=== PATIENT | male | born 1970 | race Caucasian/White ===

== ENCOUNTER → 2016-08-14 | Outpatient (CLI) | payer BC ==
[~2016-08-14] MED LIST: DIPH25CA37 PO; EPP3/2 IM; PRED20TA2 PO
[2016-08-14 14:17] LABS: ALT/SGPT 24 U/L (12-78); AST/SGOT 19 U/L (15-37); BLOOD UREA NITROGEN 13 mg/dl (7-18); BUN/CREATININE RATIO 13.1 (10-20); CALCIUM 8.9 mg/dl (8.5-10.1); CARBON DIOXIDE 28 mmol/L (21-32); CHLORIDE 106 mmol/L (98-107); GLUCOSE 90 mg/dl (70-99); POTASSIUM 4.3 mmol/L (3.5-5.1); SODIUM 141 mmol/L (136-145)
[2016-08-14 14:19] LABS: ALB/GLOB RATIO 1.3 (0.9-2); ALKALINE PHOSPHATASE 105 U/L (45-117); CHOLESTEROL 136 mg/dl (0-200); CHOLESTEROL/HDL RATIO 3.3; HDL CHOLESTEROL 41 mg/dl; LDL CHOLESTEROL CALCULATED 86 mg/dl; TRIGLYCERIDES 46 mg/dl (0-150); VERY LOW DENSITY LIPOPROT CALC 9 mg/dl
[2016-08-14 15:41] LABS: LYME DISEASE AB IGG NEG (NEG); LYME DISEASE AB IGM NEG (NEG)
== END | disposition home or self-care (01) ==
LOC: C.LABBC 10:35
PROVIDERS: ATTEND Internal Medicine
DX: R03.0 Elevated blood-pressure reading, without diagnosis of hypertension (principal); S30.860A Insect bite (nonvenomous) of lower back and pelvis, initial encounter; W57.XXXA Bitten or stung by nonvenomous insect and other nonvenomous arthropods, initial encounter

== ENCOUNTER → 2017-02-19 | Outpatient (CLI) | payer BC ==
[~2017-02-19] MED LIST changes: -PRED20TA2 PO
--- NOTE | 2017-02-19 13:03 | DIAGNOSTIC IMAGING REPORT ---
[facility]UB CLINICAL HISTORY: NEPHROLITHIASIS COMPARISON STUDY: CT scan dated 03/25/2016 FINDINGS: The bowel gas pattern is unremarkable. No renal or ureteral calculi are visualized. Pelvic basin calcifications are likely prostatic. There is a right iliac bone island. IMPRESSION: 1. Unremarkable bowel gas pattern 2. No urinary tract calculi are visualized on conventional radiographic imaging Electronically signed by: Kip Whitlock M.D. 02/19/2017 1:02 PM Dictated Date/Time: 02/19/2017 1:01 PM
== END | disposition home or self-care (01) ==
LOC: C.RAD 12:45
PROVIDERS: ATTEND Urology
DX: N20.0 Calculus of kidney (principal)

== ENCOUNTER 2024-04-28 14:03 | Inpatient (IN) ==
--- NOTE | 2024-04-28 14:19 | Emergency Department Note ---
Impression & Plan Ac ischemic VBA cerebellar stroke, Pulmonary embolism ED Provider Note NAME: CARLA GARCIA AGE: 53 SEX: M : 1970 ARRIVES VIA: Ambulance INFORMANT: Patient, ED PROVIDER(S): Vikram Mondragon DO CHIEF COMPLAINT: Vomiting HPI: The patient is a 53-year-old male who presented to the emergency department for an evaluation of nausea and vomiting. The patient states he was going to work today. He woke this morning went to work in usual fashion. He went to get something to eat and got back to his office at approximately 1 PM. He states that approximately 1:10 he had an acute onset of nausea and vomiting. He became very diaphoretic. He states anytime he opens his eyes he becomes very dizzy and feels of the room is spinning. He does have a slight headache. He denies having any unilateral weakness or difficulty speaking. The patient denies having any history of stroke or hypertension. The patient called 911 because of the severity of symptoms. ROS: See above HPI for pertinent positives & negatives. A total of 10 systems reviewed and were otherwise negative. PAST MEDICAL HISTORY: See Below PAST SURGICAL HISTORY: See Below FAMILY HISTORY: See Below SOCIAL HISTORY: See Below HOME MEDICATIONS: See Below ALLERGIES: See Below VITALS: See Below PHYSICAL EXAMINATION: GENERAL: The patient is awake and alert. The patient is anxious. EYES: The conjunctivae are clear. The pupils are round and reactive. There was no nystagmus with looking to the right. There was vertical nystagmus as well as nystagmus looking to the left. EARS, NOSE, MOUTH AND THROAT: The nose is without any evidence of any deformity. Mucous membranes are moist. Tongue is midline. Tympanic membranes were clear. NECK: The neck is nontender and supple. RESPIRATORY: Normal respiratory effort is noted there is no evidence of wheezing rhonchi or rales CARDIOVASCULAR: Regular rate and rhythm noted there no murmurs rubs or gallops normal S1 normal S2. GASTROINTESTINAL: The abdomen is soft. Abdomen is nontender. MUSCULOSKELETAL/EXTREMITIES: There is no evidence of gross deformity full range of motion is noted in the hips and shoulders. SKIN: There is no obvious evidence of any rash. There are no petechiae, pallor or cyanosis noted. NEUROLOGIC: Patient is awake alert and oriented x3 strength is symmetric patellar reflexes are 2+ bilaterally. [id number] was symmetric. The patient is unable to ambulate and has very severe ataxia with any ambulation. MEDICAL DECISION MAKING: The patient is a 53-year-old male who presented to the emergency department for nausea vomiting. The patient was not made a stroke alert by prehospital personnel. The patient was evaluated by nursing and after I evaluated the patient he was made a stroke alert. The patient presented with acute nausea and vomiting associated with vertigo. On my exam the patient did not have any abnormalities with [id number] but he did have vertical nystagmus as well as nystagmus looking to the left. He also appeared to have severe ataxia. The patient was evaluated by the [facility] neurology group. I discussed the patient's laboratory and radiographic studies with him and his . I also discussed the possibility of stroke and the need for thrombolytics if given within the first 4-1/2 hours for the best possible outcome. I discussed the risks of the medication as well and after discussion the patient agreed that he would want to have TNK. The TNK was ordered by myself. The patient was also found to have signs of a pulmonary embolism on CT angiography of the neck. At this time CT of the chest will be delayed until the patient is stable. The patient himself denied having any chest pain or difficulty breathing. The patient did have some calf tenderness but he did not relay this to me until after we had already found out about the pulmonary embolism. Apparently him and his significant other had a recent trip to the [facility] where they were in the car for an extended period of time. The patient's symptoms did slowly improve while in the emergency department. I discussed his condition with the on-call [facility] hospitalist. They have agreed to evaluate the patient in the emergency department. There were some delays in the administration of TN K. The patient's blood pressure was acceptable. The patient's significant other did ask for more information prior to agreeing to TNK but further information was given to her by the [facility] neurologist as well as myself. Triage Nursing notes reviewed. Prior medical records reviewed Vital Signs: reviewed and remarkable for elevated blood pressure. Differential diagnosis: Benign positional vertigo, dehydration, hypovolemia, anemia, tumor, infection, hypoglycemia, electrolyte abnormalities, cardiac sources, intracerebral event, toxicologic, neurologic, as well as other pathologies. ER treatment provided: See below Diagnostics interpreted by me: ECG: EKG was obtained in the emergency department. My interpretation is sinus rhythm at 78 bpm. There is no ectopy. There is no acute ST segment abnormalities noted. Cardiac Monitoring: An order was placed for continuous cardiac monitoring. The monitor shows a rate of 77 bpm with sinus rhythm. Laboratory studies: As stated above and show below. Imaging studies: See below. Radiographic imaging was reviewed by myself Consultation(s): I discussed this case with Dr. [facility] I discussed this case with the [facility] hospitalist group. They will evaluate the patient in the emergency department. ED COURSE: Procedures: none Critical Care: I have personally spent greater than 45 minutes of critical care time in the direct management of this patient. This includes bedside care, interpretation of diagnostic studies, and testing, discussion with consultants, patient, and family members, and other required patient management activities. This 45 minutes is in excess of all separately billable procedures. Past Med/Surg History Problem List Pulmonary embolism (Acute) Ac ischemic VBA cerebellar stroke (Acute) Obesity (BMI 30-39.9) Obstructive sleep apnea (adult) (pediatric) (Chronic) Medical History Acquired deviated nasal septum History of kidney stones Sleep apnea cpap Varicocele Surgical History H/O colonoscopy 06/2019 Repeat 5 yrs Hx of right knee surgery bone spur removal History of wisdom tooth extraction History of tonsillectomy Hx of LASIK Family History Mother Anxiety Hypertension Father Diabetes Heart disease Cardiac disorder Hypertension Myocardial infarction Stroke Brother Alcohol abuse Myocardial infarction Sister Ovarian cancer Alcohol abuse Uncle Myocardial infarction Other No family history of adverse response to anesthesia Denies family history of Prostate cancer Breast cancer Lung cancer Colorectal cancer Social History Smoking Status: Never smoker Second Hand Exposure: No; Do You Dip or Chew Tobacco: No; Hx Alcohol Use: Yes Alcohol type: wine Alcohol Intake Frequency: 2-4 x/Month Hx Substance Use: No Preferred Language: Spanish Communication Ability: Effective Visual Impairment: Limited Hearing Ability: Normal Bending Machine Set Up Operator Required: No Beliefs That Will Affect Care: None marital status: Current Living Situation: Spouse Current Living Situation Comment: - [place] current occupational status: employed current occupation: construction eng How many Children do You have: 0 Feels Safe at Home: Yes Childhood Exposure to Second-Hand Smoke: No Diet: regular caffeine: Yes during the past year weight has: remained stable Dental Care, Regularly: Yes Physical Activity Frequency: 3-4 Times per Week Seatbelt Use: always Sunscreen Use: Yes Assistive Devices: CPAP and Glasses Allergies Allergies Allergy/AdvReac Type Severity Reaction Status Date / Time bee pollen Allergy Severe Swelling Verified 04/28/24 15:58 of Lip/Tongue/Throat wool Allergy Mild itchy Verified 04/28/24 15:58 Dust AdvReac Intermediate sneezing Uncoded 04/28/24 15:58 Home Meds Home Medications Medication Instructions Recorded Confirmed melatonin 5 mg capsule 5 mg PO HS PRN Sleep 11/16/20 04/28/24 Results & Data (ED) Vital Signs Vital Signs - 24 hr 04/28/24 14:11 04/28/24 14:38 04/28/24 14:39 Temperature 36.5 C Temperature Source Oral Pulse Rate 78 Pulse Rate [Apical] 76 Pulse Rate from SpO2 Sensor Respiratory Rate 18 18 Respiratory Effort / Characteristics Non-Labored Spontaneous Non-Labored Spontaneous Respiratory Depth Normal Normal Respiratory Pattern Regular Blood Pressure 132/95 Blood Pressure [Right Arm] 133/84 Blood Pressure Mean 107 Blood Pressure Mean [Right Arm] 100 Blood Pressure Position Sitting Blood Pressure Position [Right Arm] Pulse Oximetry 93 92 Oxygen Delivery Method Room Air Room Air Room Air Sepsis Recent Fever Within 48 Hours No Sepsis New/Unexplained Change in Mental Status No Sepsis Action Taken by Nursing No Action Required 04/28/24 15:07 04/28/24 15:09 04/28/24 15:22 Temperature Temperature Source Pulse Rate 79 73 Pulse Rate [Apical] 79 Pulse Rate from SpO2 Sensor 78 Respiratory Rate 17 17 18 Respiratory Effort / Characteristics Respiratory Depth Respiratory Pattern Blood Pressure 145/84 H 142/91 H Blood Pressure [Right Arm] 145/84 H Blood Pressure Mean 104 109 Blood Pressure Mean [Right Arm] 104 Blood Pressure Position Blood Pressure Position [Right Arm] Semi-fowlers Pulse Oximetry 94 94 91 Oxygen Delivery Method Room Air Sepsis Recent Fever Within 48 Hours Sepsis New/Unexplained Change in Mental Status Sepsis Action Taken by Nursing 04/28/24 15:22 Temperature Temperature Source Pulse Rate Pulse Rate [Apical] 73 Pulse Rate from SpO2 Sensor Respiratory Rate 18 Respiratory Effort / Characteristics Respiratory Depth Respiratory Pattern Blood Pressure Blood Pressure [Right Arm] 142/91 H Blood Pressure Mean Blood Pressure Mean [Right Arm] 108 Blood Pressure Position Blood Pressure Position [Right Arm] Lying Pulse Oximetry 91 Oxygen Delivery Method Room Air Sepsis Recent Fever Within 48 Hours Sepsis New/Unexplained Change in Mental Status Sepsis Action Taken by Retirement Medications Current Medication List: was personally reviewed by me Laboratory Data Attestation: I reviewed the patient's lab results. 04/28/24 14:14 04/28/24 14:14 Lab Results 04/28/24 04/28/24 Range/Units 14:14 14:18 WBC 7.80 (4.8-10.8) K/ul RBC 5.09 (4.70-6.10) M/uL Hgb 16.1 (14.0-18.0) g/dl POC Hgb 16.7 (14.0-18.0) g/dl Hct 48.5 (42.0-52.0) % POC Hct 49 (42-52) % MCV 95.3 (80.0-100.0) fL MCH 31.6 (25.0-34.0) pg MCHC 33.2 (32.0-36.0) g/dL RDW Std Deviation 44.8 (36.4-46.3) fL RDW Coeff of Viinta 12.7 (11.5-14.5) % Plt Count 233 (130-400) K/uL MPV 9.1 L (9.4-12.4) fL Immature Gran % (Auto) 0.3 % Neut % (Auto) 59.3 % Lymph % (Auto) 29.9 % [place] % (Auto) 7.1 % Eos % (Auto) 2.4 % Baso % (Auto) 1.0 % Neut # (Auto) 4.63 (1.40-6.50) K/uL Lymph # (Auto) 2.33 (1.20-3.40) K/uL [place] # (Auto) 0.55 (0.11-0.59) K/uL Eos # (Auto) 0.19 (0.00-0.50) K/uL Baso # (Auto) 0.08 (0.00-0.20) K/uL Immature Gran # (Auto) 0.02 (0.01-0.20) K/uL PT 10.6 (9.0-12.0) Seconds INR 1.0 (0.9-1.1) APTT < 20 L (21-31) Seconds PTT Ratio 0.7 POC Sodium 142 (135-144) mmol/L Sodium 141 (136-145) mmol/L POC Potassium 3.9 (3.3-5.0) mmol/L Potassium 4.0 (3.5-5.1) mmol/L POC Chloride 106 (101-112) mmol/L Chloride 107 (98-107) mmol/L Carbon Dioxide 23 (21-32) mmol/L POC Total CO2 23 L (24-31) mmol/L Anion Gap 11 (3-11) POC Anion Gap 19.0 (16-25) mmol/L POC BUN 15 (7-18) mg/dl BUN 15 (6-23) mg/dl Creatinine 1.08 (0.6-1.4) mg/dl POC Creatinine 1.1 (0.6-1.3) mg/dl Est Cr Clr Drug Dosing 80.4 ml/min Est GFR ( Amer) 89.1 ml/min Est GFR (Non-Af Amer) 76.9 ml/min BUN/Creatinine Ratio 13.9 (10-20) Glucose 162 H (70-99(Fasting)) mg/dl POC Glucose (other) 165 H (70-99) mg/dl Calcium 9.2 (8.6-10.3) mg/dl POC Ioniz Calcium Janell 1.19 (1.12-1.32) mmol/l Magnesium 1.9 (1.7-2.4) mg/dl Total Bilirubin 0.7 (0.2-1.0) mg/dl AST 18 (13-39) U/L ALT 18 (7-52) U/L Alkaline Phosphatase 95 (34-104) U/L Troponin I High Sens 2.8 (0-20) pg/ml Total Protein 6.9 (6.0-8.3) gm/dl Albumin 4.5 (3.4-5.0) gm/dl Globulin 2.4 L (2.5-4.0) gm/dl Albumin/Globulin Ratio 1.9 (0.9-2) Administered Medications Miscellaneous (Icu Protocol For Hyperglycemia) 1 each N/A ACHS JOSEPH Stop: 04/30/24 17:00 Last Admin: 04/28/24 18:04 Dose: Not Given Documented By: FLOYD Discontinued Medications Gadobutrol (Gadobutrol 65ml Vial) 9.5 ml IV ONCE ONE Stop: 04/28/24 18:16 Last Admin: 04/28/24 18:10 Dose: 9.5 ml Documented By: KETTY Tenecteplase 24 mg/ Syringe 4.8 mls @ 57.6 mls/min IV NOW ONE; Protocol Stop: 04/28/24 15:11 Last Admin: 04/28/24 15:06 Dose: 57.6 mls/min Documented By: LAUREN Co-signed By: CHARLETTE Sodium Chloride (Nss) 500 mls @ 999 mls/hr IV .Q31M ONE Stop: 04/28/24 15:37 Last Infusion: 04/28/24 15:52 Dose: Infused Documented By: Admin: 04/28/24 15:11 Dose: 999 mls/hr Documented By: CEF Magnesium Sulfate/Dextrose (Magnesium Sulfate / D5w) 1 gm in 100 mls @ 100 mls/hr IV NOW STA Stop: 04/28/24 16:06 Last Infusion: 04/28/24 16:43 Dose: Infused Documented By: Admin: 04/28/24 15:39 Dose: 100 mls/hr Documented By: CEF Ioversol (Optiray 320 125ml) 120 ml IV ONCE ONE Stop: 04/28/24 14:27 Last Admin: 04/28/24 14:26 Dose: 120 ml Documented By: SOSA Lorazepam (Lorazepam 2 Mg/1 Ml Vial) 0.25 mg IV NOW STA Stop: 04/28/24 19:04 Last Admin: 04/28/24 19:21 Dose: 0.25 mg Documented By: SHIRIN Miscellaneous (Stat Iv/Im) 1 each N/A NOW STA Stop: 04/28/24 15:01 Last Admin: 04/28/24 15:52 Dose: Not Given Documented By: CHARLETTE Ondansetron HCl (Ondansetron Inj 2 Mg/Ml 2 Ml Vial) 4 mg IV NOW STA Stop: 04/28/24 14:15 Last Admin: 04/28/24 14:25 Dose: 4 mg Documented By: CEF Ondansetron HCl (Ondansetron Inj 2 Mg/Ml 2 Ml Vial) 4 mg IV Q6H PRN PRN Reason: Nausea And Vomiting Stop: 05/28/24 16:01 Last Admin: 04/28/24 17:24 Dose: 4 mg Documented By: FLOYD Promethazine HCl (Promethazine 12.5 Mg/50.5 Ml Nss) Confirm Administered Dose 12.5 mg IV .STK-MED ONE Stop: 04/28/24 15:03 Last Admin: 04/28/24 15:05 Dose: 12.5 mg Documented By: CEF Sodium Chloride (Sodium Chloride 0.9% 10ml Flush) 20 ml IV NOW STA Stop: 04/28/24 15:01 Last Admin: 04/28/24 15:09 Dose: 20 ml Documented By: CEF Imaging Data Attestation: I personally reviewed and interpreted this imaging study as follows: My Impression: CT of the brain was obtained in the emergency department. There was no definite intracranial hemorrhage or mass effect, final report below. 1 view chest x-ray was obtained in the emergency department. My interpretation is no free air or definite infiltrate, final report below. Radiologist's Impression: Chest X-Ray 04/28/24 14:14 XR chest 1V portable CLINICAL HISTORY: neuro deficit, acute stroke suspected COMPARISON STUDY: No previous studies for comparison. FINDINGS: Lung volumes are normal. Lungs are clear. There is no pneumothorax or pleural effusion. Borderline cardiomegaly. Mediastinal contours are normal. There is no evidence for pulmonary edema. IMPRESSION: No acute cardiopulmonary findings. ACT 112: Negative or not required by law. Electronically signed by: Vince Bailey M.D. 04/28/2024 2:[address] 04/28/24 14:[address] DOSE: HISTORY: neuro deficit, acute stroke suspected TECHNIQUE: Multiaxial CT images of the head were performed without the use of intravenous contrast. Automated exposure control was utilized for this study. A dose lowering technique was utilized adhering to the principles of ALARA. Comparison: None. Findings: The paranasal sinuses and mastoid air cells are clear. The calvarium and skull base are intact. There is no mass, hematoma, midline shift. The ventricles and sulci are within normal limits. Small old lacunar infarct within the right cerebellar hemisphere posteriorly. Subtle hypodensity within the left posterior medial cerebellar hemisphere best seen on images 12 and 11. This could represent an age-indeterminate infarct. Impression: 1. Subtle small hypodensity within the left posterior medial cerebellar hemisphere which could represent an age-indeterminate infarct. 2. Old right cerebellar hemisphere lacunar infarct. 3. No acute intracranial hemorrhage. ACT 112: Negative or not required by law. Electronically signed by: Bebeto Javier M.D. 04/28/2024 2:38 PM Head CTA 04/28/24 14:14 CTA ANGIOGRAPHY OF THE HEAD CLINICAL HISTORY: neuro deficit, acute stroke suspected COMPARISON STUDY: No previous studies for comparison. TECHNIQUE: Helical axial images of the head were obtained following uneventful intravenous administration of 120 cc of Optiray. Sagittal and coronal reconstructions were viewed as well as maximal intensity projections on an independent 3-D workstation. Automated exposure control was utilized for the study. A dose lowering technique was utilized adhering to the principles of ALARA. FINDINGS: The bilateral M1, M2, A1 and A2 segments are patent. There is no intracranial aneurysm. There is no vessel cut off within the anterior circulation. The left vertebral artery is dominant. There is apparent diminished flow within the distal portion of the left posterior inferior cerebellar artery. Otherwise, posterior circulation appears unremarkable. Basilar artery is patent. The bilateral posterior cerebral arteries are patent. Please note that the head CT will be reported separately. IMPRESSION: 1. Apparent diminished flow within the distal portion of the left posterior inferior cerebellar artery. This may be artifactual however vessel occlusion cannot be excluded. MRI of the brain could be obtained to assess for acute infarct. 2. No additional sites of vessel occlusion. ACT 112: Negative or not required by law. Electronically signed by: Vince Bailey M.D. 04/28/2024 2:43 PM Neck CTA 04/28/24 14:14 CT ANGIOGRAPHY OF THE NECK WITH CONTRAST CLINICAL HISTORY: neuro deficit, acute stroke suspected. Sudden onset dizziness. COMPARISON STUDY: No previous studies for comparison. Technique: CT angiography of the carotid and vertebral arteries was obtained using Optiray and 3D reconstruction on an independent workstation. NASCET criteria was utilized. Automated exposure control was utilized for the study. A dose lowering technique was utilized adhering to the principles of ALARA. CT DOSE: 1266.09 mGy.cm Findings: Incidental note is made of multiple segmental pulmonary emboli within visualized portions of the right upper lobe. Lung apices are otherwise unremarkable. There is no cervical lymphadenopathy. There are no cervical spine fractures. The bilateral common carotid and cervical internal carotid arteries are patent. There is no stenosis or dissection within these vessels. There is no aneurysm within the neck. The left vertebral artery is dominant. There are no stenoses or dissections within the cervical portions of the vertebral arteries. The CTA of the head will be reported separately. IMPRESSION: 1. Multiple right upper lobe segmental pulmonary emboli within visualized portions of the chest. 2. No stenosis or dissection within the bilateral common carotid, cervical internal carotid or cervical portions of the vertebral arteries. ACT 112: Negative or not required by law. Electronically signed by: Vince Bailey M.D. 04/28/2024 2:39 PM Discharge Plan Visit Data Chief Complaint: Stroke Alert ED Provider: Vikram Mondragon Discharge Problem: Ac ischemic VBA cerebellar stroke, Pulmonary embolism Patient Disposition: Admitted As Inpatient Discharge Instructions Interventions: ED Discharge Assessment Last Done: 04/28/24 17:06 Discharge Problem: Pulmonary embolism Qualifiers: Pulmonary embolism type: unspecified Chronicity: acute Acute cor pulmonale presence: unspecified Qualified Code(s): I26.99 - Other pulmonary embolism without acute cor pulmonale
[2024-04-28] MEDS: ONDANSETRON INJ 2 MG/ML 2 ML VIAL IV STA (14:25)
[2024-04-28] MEDS: OPTIRAY 320 125ml IV ONE (14:26)
[2024-04-28 14:27] LABS: Basophils # (auto) 0.08 K/uL (0.00-0.20); Eosinophils # (auto) 0.19 K/uL (0.00-0.50); Eosinophils % (auto) 2.4 %; Hematocrit (blood only) 48.5 % (42.0-52.0); Hemoglobin 16.1 g/dl (14.0-18.0); Immature Granulocytes # (auto) 0.02 K/uL (0.01-0.20); Immature Granulocytes % (auto) 0.3 %; Lymphocytes # (auto) 2.33 K/uL (1.20-3.40); Lymphocytes % (auto) 29.9 %; Mean Corpuscular Hemoglobin 31.6 pg (25.0-34.0); Mean Corpuscular Hgb Conc 33.2 g/dL (32.0-36.0); Mean Corpuscular Volume 95.3 fL (80.0-100.0); Mean Platelet Volume 9.1 fL (9.4-12.4); Monocytes # (auto) 0.55 K/uL (0.11-0.59); Monocytes % (auto) 7.1 %; Neutrophils # (auto) 4.63 K/uL (1.40-6.50); Neutrophils % (auto) 59.3 %; Platelet Count 233 K/uL (130-400); RDW Coefficient of Variation 12.7 % (11.5-14.5); RDW Standard Deviation 44.8 fL (36.4-46.3); Red Blood Count 5.09 M/uL (4.70-6.10)
[2024-04-28 14:31] LABS: iSTAT Creatinine 1.1 mg/dl (0.6-1.3); iSTAT Hemoglobin 16.7 g/dl (14.0-18.0); iSTAT Ionized Calcium 1.19 mmol/l (1.12-1.32); iSTAT Potassium 3.9 mmol/L (3.3-5.0)
--- NOTE | 2024-04-28 14:40 | CT Scan Report ---
HEAD CT NONCONTRAST CT DOSE: HISTORY: neuro deficit, acute stroke suspected TECHNIQUE: Multiaxial CT images of the head were performed without the use of intravenous contrast. A utomated exposure control was utilized for this study. A dose lowering technique was utilized adheri ng to the principles of ALARA. Comparison: None. Findings: The paranasal sinuses and mastoid air cells are clear. The calvarium and skull base are int act. There is no mass, hematoma, midline shift. The ventricles and sulci are within normal limits. Sm all old lacunar infarct within the right cerebellar hemisphere posteriorly. Subtle hypodensity within the left posterior medial cerebellar hemisphere best seen on images 12 and 11. This could represent an age-indeterminate infarct. Impression: 1. Subtle small hypodensity within the left posterior medial cerebellar hemisphere which could repres ent an age-indeterminate infarct. 2. Old right cerebellar hemisphere lacunar infarct. 3. No acute intracranial hemorrhage. ACT 112: Negative or not required by law. Electronically signed by: Bebeto Javier M.D. 04/28/2024 2:38 PM
--- NOTE | 2024-04-28 14:41 | CT Scan Report ---
CT ANGIOGRAPHY OF THE NECK WITH CONTRAST CLINICAL HISTORY: neuro deficit, acute stroke suspected. Sudden onset dizziness. COMPARISON STUDY: No previous studies for comparison. Technique: CT angiography of the carotid and vertebral arteries was obtained using Optiray and 3D rec onstruction on an independent workstation. NASCET criteria was utilized. Automated exposure control was utilized for the study. A dose lowering technique was utilized adhering to the principles of ALA RA. CT DOSE: 1266.09 mGy.cm Findings: Incidental note is made of multiple segmental pulmonary emboli within visualized portions o f the right upper lobe. Lung apices are otherwise unremarkable. There is no cervical lymphadenopathy. There are no cervical spine fractures. The bilateral common carotid and cervical internal carotid ar teries are patent. There is no stenosis or dissection within these vessels. There is no aneurysm with in the neck. The left vertebral artery is dominant. There are no stenoses or dissections within the c ervical portions of the vertebral arteries. The CTA of the head will be reported separately. IMPRESSION: 1. Multiple right upper lobe segmental pulmonary emboli within visualized portions of the chest. 2. No stenosis or dissection within the bilateral common carotid, cervical internal carotid or cervic al portions of the vertebral arteries. ACT 112: Negative or not required by law. Electronically signed by: Vince Bailey M.D. 04/28/2024 2:39 PM
--- NOTE | 2024-04-28 14:45 | CT Scan Report ---
CTA ANGIOGRAPHY OF THE HEAD CLINICAL HISTORY: neuro deficit, acute stroke suspected COMPARISON STUDY: No previous studies for comparison. TECHNIQUE: Helical axial images of the head were obtained following uneventful intravenous administr ation of 120 cc of Optiray. Sagittal and coronal reconstructions were viewed as well as maximal inten sity projections on an independent 3-D workstation. Automated exposure control was utilized for the study. A dose lowering technique was utilized adhering to the principles of ALARA. FINDINGS: The bilateral M1, M2, A1 and A2 segments are patent. There is no intracranial aneurysm. The re is no vessel cut off within the anterior circulation. The left vertebral artery is dominant. There is apparent diminished flow within the distal portion of the left posterior inferior cerebellar wan ry. Otherwise, posterior circulation appears unremarkable. Basilar artery is patent. The bilateral po sterior cerebral arteries are patent. Please note that the head CT will be reported separately. IMPRESSION: 1. Apparent diminished flow within the distal portion of the left posterior inferior cerebellar arter y. This may be artifactual however vessel occlusion cannot be excluded. MRI of the brain could be obt ained to assess for acute infarct. 2. No additional sites of vessel occlusion. ACT 112: Negative or not required by law. Electronically signed by: Vince Bailey M.D. 04/28/2024 2:43 PM
[2024-04-28 14:48] LABS: Albumin Globulin Ratio 1.9 (0.9-2); Albumin Level 4.5 gm/dl (3.4-5.0); BUN Creatinine Ratio 13.9 (10-20); Bilirubin,Total 0.7 mg/dl (0.2-1.0); Calcium 9.2 mg/dl (8.6-10.3); Creatinine Clr Calc Pharmacy 80.4 ml/min; Est GFR (African American) 89.1 ml/min; Est GFR (Non-African American) 76.9 ml/min; Globulin 2.4 gm/dl (2.5-4.0); Magnesium 1.9 mg/dl (1.7-2.4); Total Protein 6.9 gm/dl (6.0-8.3)
--- NOTE | 2024-04-28 14:53 | XRay Report ---
XR chest 1V portable CLINICAL HISTORY: neuro deficit, acute stroke suspected COMPARISON STUDY: No previous studies for comparison. FINDINGS: Lung volumes are normal. Lungs are clear. There is no pneumothorax or pleural effusion. Bor derline cardiomegaly. Mediastinal contours are normal. There is no evidence for pulmonary edema. IMPRESSION: No acute cardiopulmonary findings. ACT 112: Negative or not required by law. Electronically signed by: Vince Bailey M.D. 04/28/2024 2:52 PM
[2024-04-28 14:54] LABS: Troponin I High Sensitivity 2.8 pg/ml (0-20)
[2024-04-28] MEDS ORDERED: No Aspirin within 24hrs of THROMBOLYTIC-Stroke PO SCH (15:00)
[2024-04-28] MEDS: PROMETHAZINE 12.5 MG/50.5 ML NSS IV ONE (15:05)
[2024-04-28] MEDS: TENECTEPLASE 24 MG in SYRINGE 0 ML IV ONE (15:06)
--- NOTE | 2024-04-28 15:06 | History & Physical Report ---
Date of Service April 28, 2024 Assessment & Plan (1) Ac ischemic VBA cerebellar stroke: Plan: - likely with probable paradoxical emboli - Patient presents with nausea, vomiting, vertigo, ataxia, headache, and fatigue since 1310 on 04/28 - recent lipid panel WNL, no PMHx of HTN, DM, or previous VTE - CTA head showed possible occlusion of left posterior inferior cerebellar artery - TNK initiated in right arm at 1507 on 04/28/24 - CT head w/o contrast 24 hours after TNK initiated, ordered - telestroke recommending inpatient treatment, MRI, possible hematology consultation due to elevated hgb - permissive Hypertension for next 24 hours; keep SBP goal range less than 180, avoid hypotension. - Q2H neuro checks - Labetalol prn as per stroke order protocol - associated nausea and vomiting improving on admission - 500 mL NSS bolus, zofran 4 mg IV, and Phenergan 12.5 mg IV given in ED - Do not recommend giving Phenergan IV as can cause tissue damage - Zofran IV prn - MRI pending - No recent echo, echo with bubble study pending - neurology consulted - Discussed with science consultant neurologist, Dr. Webber is comfortable seeing the patient here vs transfer - dispo to ICU with telemetry monitoring - AM CBC, BMP, PT/INR, lipid panel, A1C (2) Pulmonary embolism: Plan: - Patient with recent long car ride; denies dyspnea and current calf pain - neck CTA on admission showed multiple right upper lobe segmental pulmonary emboli - troponin negative on admission - No heparin/ anticoag for 24 hrs due to TNK given 1507 on 04/28 - CT of chest with contrast to be taken tomorrow - Recommend ordering routine Doppler of bilateral lower extremities tomorrow - mild hypoxia on RA, O2 trending in lower 90's on exam - patient was sleeping with history of MELIA - dispo to ICU with telemetry monitoring Plan VTE ppx: TNK 1507 on 04/28, will defer pharmacologic management until 24 hours Diet: NPO, will nausea and vomiting - can progress diet when symptoms resolve Code status: Full code Chronic stable diagnoses: MELIA - no home cpap/bipap Admission and Anticipated Discharge Date Admission Date: 04/28/24 History of Present Illness Chief Complaint: PE, CVA, s/p TNK Primary Care Provider: Tyrel R. Shunk, DO Patient is a 53-year-old female with a past medical history of obstructive sleep apnea, he does not use his CPAP at home. Patient's , Mitra, at bedside provided additional history as needed. Patient here today with vomiting, vertigo/double vision, headache, and ataxia that began at 1310 today. He did not fall due to ataxia but felt as he was going to. Him and his recently drove home from the [place] which is about a 10-[address]. He did have some calf pain this week. he denies recent shortness of breath or edema. He received TNK at 1507 today and his symptoms have been improving since. He has vomited multiple times prior to arrival and in the ED, has been managed with fluids, Zofran, and Phenergan. He stated that he feels very tired and was resting on exam. Patient denies cough, dyspnea, dyspnea on exertion, chest pain, abdominal pain, dysuria, edema, numbness, tingling. His symptoms of dizziness, headache, nausea, and vomiting are improving with TNK and antiemetics. He personally has no past medical history of DVT, PE, NC, CVA, bleeding, clotting disorders, DM, HTN, HLD or cancer. His mother had a PE about 4 years ago, but no known clotting disorders. He does not smoke or use illicit drugs. He drinks alcohol socially with his ; they have about 1 bottle of wine per weekend. He does not have any home medications because he has no past medical history, other than the MELIA in which she does not use oxygen/CPAP/BiPAP at home . He was to have a sleep study scheduled in the future. He had a recent wellness visit with his PCP in which all of his blood work was good. He wishes to be full code at this time. He does not have a written living will or POA. Allergies Allergy/AdvReac Type Severity Reaction Status Date / Time bee pollen Allergy Severe Swelling Verified 04/28/24 15:58 of Lip/Tongue/Throat wool Allergy Mild itchy Verified 04/28/24 15:58 Dust AdvReac Intermediate sneezing Uncoded 04/28/24 15:58 Home Medications Medication Instructions Recorded Confirmed Type melatonin 5 mg capsule 5 mg PO HS PRN Sleep 11/16/20 04/28/24 History Past Med/Surg History Problem List Pulmonary embolism (Acute) Ac ischemic VBA cerebellar stroke (Acute) Obesity (BMI 30-39.9) Obstructive sleep apnea (adult) (pediatric) (Chronic) Medical History Acquired deviated nasal septum History of kidney stones Sleep apnea cpap Varicocele Surgical History H/O colonoscopy 06/2019 Repeat 5 yrs Hx of right knee surgery bone spur removal History of wisdom tooth extraction History of tonsillectomy Hx of LASIK Family History Mother Anxiety Hypertension Father Diabetes Heart disease Cardiac disorder Hypertension Myocardial infarction Stroke Brother Alcohol abuse Myocardial infarction Sister Ovarian cancer Alcohol abuse Uncle Myocardial infarction Other No family history of adverse response to anesthesia Denies family history of Prostate cancer Breast cancer Lung cancer Colorectal cancer Social History Smoking Status: Never smoker Second Hand Exposure: No; Do You Dip or Chew Tobacco: No; Hx Alcohol Use: Yes Alcohol type: wine Alcohol Intake Frequency: 2-4 x/Month Hx Substance Use: No Preferred Language: Danish Communication Ability: Effective Visual Impairment: Limited Hearing Ability: Normal Forklift Material Handler Required: No Beliefs That Will Affect Care: None marital status: Current Living Situation: Spouse Current Living Situation Comment: - Mitra current occupational status: employed current occupation: construction eng How many Children do You have: 0 Feels Safe at Home: Yes Childhood Exposure to Second-Hand Smoke: No Diet: regular caffeine: Yes during the past year weight has: remained stable Dental Care, Regularly: Yes Physical Activity Frequency: 3-4 Times per Week Seatbelt Use: always Sunscreen Use: Yes Assistive Devices: CPAP and Glasses Review of Systems Review of Systems: see HPI Physical Exam Physical Exam: The patient is awake, alert and oriented 3, well developed and well nourished, normocephalic and atraumatic, in no acute distress. HEENT- PERRL, EOMI, mucous membranes moist. Hearing grossly intact. Heart-normal S1 and S2. No murmurs, rubs or gallops. Lungs-clear bilaterally, no respiratory distress, no accessory muscle use. Abdomen-normal bowel sounds and soft. No ascites noted. Non-tender. Extremities- no clubbing, cyanosis, or edema. Rheumatologic-normal range of motion. Neurologic: PERRL, EOMI, accommodation nl, no face palsy, no dysarthria CN's II-XI intact bilaterally, moves all extremities and awake; no focal motor deficits Speech / Cognition: normal speech and normal cognition Motor/Sensory: no pronator drift and no sensory deficit Coordination: normal [id number] test Results & Data Results & Data Vital Signs (Past 12 Hours) Vital Signs Temp Pulse Pulse Resp BP BP Pulse Ox 04/28/24 14:39 76 18 133/84 92 04/28/24 14:38 04/28/24 14:11 36.5 C 78 18 132/95 93 O2 Del Method 04/28/24 14:39 Room Air 04/28/24 14:38 Room Air 04/28/24 14:11 Room Air Code Status & VTE Plan Code Status full code VTE Prophylaxis Plan VTE Prophylaxis will be ordered: Yes Supervising Physician Co-Signing Physician Notes I personally saw and examined the patient. I independently reviewed the labs, EKG, imaging, problem list, medication list, past medical history and family history. I verified all garrido points and agree with Ruth Kelly PA-C with the following exceptions and/or additions: 53 year old male presents to the ER vertigo, vomiting, headache and ataxia. Sudden onset around 1pm. Received TNK in the ER. O/E HS RRR, no murmurs, Chest CTAB, Abdo SNT, bilateral horizontal nystagmus present, otherwise CN 2-> 12 intact with normal power and co-ordination in all 4 limbs A/p Acute CVA - s/p TNK, admit to ICU, consult neurology, TTE, NIH/neuro checks per protocol PE - initial treatment with TNK, will need to start on heparin following this but will defer timing to the ICU team PG Care Time/CCT Total # of Minutes Spent Total Time Spent with Patient: Total time spent is greater than 50% in coordination of care (as documented) at patient's floor/unit and/or counseling patient: Coding Level of Care Code None Diagnoses Ac ischemic VBA cerebellar stroke I63.29 Pulmonary embolism I26.99 Acute cor pulmonale presence: unspecified Chronicity: acute Pulmonary embolism type: unspecified (2) Pulmonary embolism Acute cor pulmonale presence: unspecified Chronicity: acute Pulmonary embolism type: unspecified Qualified Code(s): I26.99 - Other pulmonary embolism without acute cor pulmonale
[2024-04-28] MEDS: SODIUM CHLORIDE 0.9% 10ML FLUSH IV STA (15:09)
[2024-04-28] MEDS: SODIUM CHLORIDE 0.9% 500 ML IV ONE (15:11)
[2024-04-28] MEDS ORDERED: PHARMACIST DISCHARGE MED REC CONSULT PRN (15:37)
[2024-04-28] MEDS ORDERED: LABETALOL HCL IV 5 MG/ML 20ML IV PRN (15:37)
[2024-04-28] MEDS: MAGNESIUM SULFATE / D5W 1 GM/100 ML BAG IV STA (15:39)
[2024-04-28 15:40] LABS: Partial Thromboplastin Ratio 0.7; Prothrombin Time 10.6 Seconds (9.0-12.0)
[2024-04-28 15:42] LABS: Partial Thromboplastin Time < 20 Seconds (21-31)
[2024-04-28] MEDS: STAT IV/IM STA (15:52)
--- NOTE | 2024-04-28 16:41 | Critical Care Consultation ---
Date of Consultation April 28, 2024 Assessment & Plan (1) Pulmonary embolism: (2) Ac ischemic VBA cerebellar stroke: Plan Impression: 53-year-old male with posterior circulation stroke and pulmonary thromboembolic disease. High likelihood of paradoxical emboli. Recommendations: 1. Status post TNK: Bleeding precautions will be initiated. 2. Cerebellar stroke: Await MRI. Neurology consultation pending. Continue neurochecks. If the patient were to deteriorate would have low threshold for stat imaging and potential transfer to a higher level of care as edema or bleeding may be poorly tolerated in the posterior fossa. Will need PT and OT evaluations as well as potential swallow evaluation with speech therapy in a.m. 3. PE: Likely precipitated by recent travel. Will check duplex ultrasound of the lower extremities to see whether there is free-floating thrombus. Discussed with pharmacy. Would recommend initiation of heparin infusion in about 10 to 12 hours without a bolus given the PE and likely paradoxical emboli. Await echocardiogram. If ASD/PFO/VSD is identified, will need cardiology consultation 4. Defer hypercoagulable workup at this time. 5. Discussed with patient and nursing at bedside as well as with pharmacy Patient is critically ill at this point in time with significant probability of clinical deterioration. A total of 50 minutes in critical care time was spent in evaluation management and coordination of care of this patient including discussion with pharmacy. History of Present Illness History of Present Illness Asked by hospitalist to assist in evaluation management this patient admitted with posterior circulation stroke and pulmonary thromboembolic disease (likely paradoxical emboli) status post systemic thrombolysis. History is obtained from review electronic medical record as well as discussion with the patient at bedside. Patient is a 53-year-old male with a history of sleep apnea who presented to the emergency room acutely today with diplopia nausea vomiting headache and ataxia. He had some pain in his calf but no shortness of breath or edema. He was evaluated as a stroke alert in the emergency room. CT of the head revealed age- indeterminate cerebellar strokes as well as a probable posterior cerebellar artery occlusion and the patient had telestroke consultation completed with Pari and systemic thrombolysis was administered. He had CT of the neck performed with contrast in the apices of the lungs did demonstrate some filling voids within the apical pulmonary arteries consistent with pulmonary thromboembolic disease. He does have a family history of PEs as his mother had a PE several years ago. No history of sudden cardiac in his family that he is aware of. He does carry a diagnosis of sleep disordered breathing but is not compliant with CPAP. The patient states that his nausea and vomiting are improved. His double vision appears to have resolved and his vertigo is much improved currently. Allergies Allergy/AdvReac Type Severity Reaction Status Date / Time bee pollen Allergy Severe Swelling Verified 04/28/24 15:58 of Lip/Tongue/Throat wool Allergy Mild itchy Verified 04/28/24 15:58 Dust AdvReac Intermediate sneezing Uncoded 04/28/24 15:58 Home Medications Medication Instructions Recorded Confirmed Type melatonin 5 mg capsule 5 mg PO HS PRN Sleep 11/16/20 04/28/24 History Patient History Medical History Acquired deviated nasal septum History of kidney stones Sleep apnea cpap Varicocele Surgical History H/O colonoscopy 06/2019 Repeat 5 yrs Hx of right knee surgery bone spur removal History of wisdom tooth extraction History of tonsillectomy Hx of LASIK Family History Mother Anxiety Hypertension Father Diabetes Heart disease Cardiac disorder Hypertension Myocardial infarction Stroke Brother Alcohol abuse Myocardial infarction Sister Ovarian cancer Alcohol abuse Uncle Myocardial infarction Other No family history of adverse response to anesthesia Denies family history of Prostate cancer Breast cancer Lung cancer Colorectal cancer Social History Smoking Status: Never smoker Second Hand Exposure: No; Do You Dip or Chew Tobacco: No; Hx Alcohol Use: Yes Alcohol type: wine Alcohol Intake Frequency: 2-4 x/Month Hx Substance Use: No Preferred Language: Turkish Communication Ability: Effective Visual Impairment: Limited Hearing Ability: Normal Dryerman/Woman Required: No Beliefs That Will Affect Care: None marital status: Current Living Situation: Spouse Current Living Situation Comment: - [facility] current occupational status: employed current occupation: construction eng How many Children do You have: 0 Feels Safe at Home: Yes Childhood Exposure to Second-Hand Smoke: No Diet: regular caffeine: Yes during the past year weight has: remained stable Dental Care, Regularly: Yes Physical Activity Frequency: 3-4 Times per Week Seatbelt Use: always Sunscreen Use: Yes Assistive Devices: CPAP and Glasses Review of Systems Review of Systems: Please refer to admission H&P. No additions or deletions Physical Exam Constitutional: WD/WN, vitals as above Neck: trachea midline, no thyromegaly Respiratory: normal respiratory effort, lungs clear to auscultation Cardiovascular: RRR, no murmur, no edema Gastrointestinal (Abdomen): normal bowel sounds, soft, nontender, no hepatosplenomegaly Musculoskeletal: Extremities: extremities normal to inspection Skin: no rashes, warm and dry Neurologic: Nonfocal exam Lymphatic: no cervical lymphadenopathy Results & Data Results & Data Vital Signs (Past 12 Hours) Vital Signs Temp Pulse Pulse Resp BP BP Pulse Ox 04/28/24 16:22 75 18 139/86 97 04/28/24 16:07 79 18 147/90 H 98 04/28/24 15:52 73 19 152/73 H 97 04/28/24 15:37 72 17 142/76 H 97 04/28/24 15:37 72 17 142/76 H 97 04/28/24 15:22 73 18 142/91 H 91 04/28/24 15:22 73 18 142/91 H 91 04/28/24 15:09 79 17 145/84 H 94 04/28/24 15:07 79 17 145/84 H 94 04/28/24 14:39 76 18 133/84 92 04/28/24 14:38 04/28/24 14:11 36.5 C 78 18 132/95 93 O2 Del Method O2 Flow Rate 04/28/24 16:22 Nasal Cannula 2 04/28/24 16:07 Nasal Cannula 2 04/28/24 15:52 Room Air 04/28/24 15:37 Nasal Cannula 04/28/24 15:37 Nasal Cannula 2 04/28/24 15:22 Room Air 04/28/24 15:22 04/28/24 15:09 04/28/24 15:07 Room Air 04/28/24 14:39 Room Air 04/28/24 14:38 Room Air 04/28/24 14:11 Room Air Critical Care Results & Data Vital Signs (Past 12 Hours) Vital Signs Temp Pulse Pulse Resp BP BP BP 04/28/24 16:30 36.5 C 72 16 137/93 04/28/24 16:22 75 18 139/86 04/28/24 16:07 79 18 147/90 H 04/28/24 15:52 73 19 152/73 H 04/28/24 15:37 72 17 142/76 H 04/28/24 15:37 72 17 142/76 H 04/28/24 15:22 73 18 142/91 H 04/28/24 15:22 73 18 142/91 H 04/28/24 15:09 79 17 145/84 H 04/28/24 15:07 79 17 145/84 H 04/28/24 14:39 76 18 133/84 04/28/24 14:38 04/28/24 14:11 36.5 C 78 18 132/95 Pulse Ox O2 Del Method O2 Flow Rate 04/28/24 16:30 96 Nasal Cannula 2 04/28/24 16:22 97 Nasal Cannula 2 04/28/24 16:07 98 Nasal Cannula 2 04/28/24 15:52 97 Room Air 04/28/24 15:37 97 Nasal Cannula 04/28/24 15:37 97 Nasal Cannula 2 04/28/24 15:22 91 Room Air 04/28/24 15:22 91 04/28/24 15:09 94 04/28/24 15:07 94 Room Air 04/28/24 14:39 92 Room Air 04/28/24 14:38 Room Air 04/28/24 14:11 93 Room Air Lab & Micro Results (Past 24 Hours) RBC 5.09 M/uL (4.70-6.10) 04/28/24 WBC 7.80 K/ul (4.8-10.8) 04/28/24 Hgb 16.1 g/dl (14.0-18.0) 04/28/24 Hct 48.5 % (42.0-52.0) 04/28/24 MCV 95.3 fL (80.0-100.0) 04/28/24 MCH 31.6 pg (25.0-34.0) 04/28/24 MCHC 33.2 g/dL (32.0-36.0) 04/28/24 RDW Standard Deviation 44.8 fL (36.4-46.3) 04/28/24 RDW Coefficient of Variation 12.7 % (11.5-14.5) 04/28/24 Plt Count 233 K/uL (130-400) 04/28/24 MPV 9.1 fL (9.4-12.4) L 04/28/24 Neutrophils (%) (Auto) 59.3 % 04/28/24 Lymphocytes (%) (Auto) 29.9 % 04/28/24 Monocytes # (Auto) 0.55 K/uL (0.11-0.59) 04/28/24 Eosinophils # (Auto) 0.19 K/uL (0.00-0.50) 04/28/24 Immature Granulocyte % (Auto) 0.3 % 04/28/24 Neutrophils # (Auto) 4.63 K/uL (1.40-6.50) 04/28/24 Lymphocytes # (Auto) 2.33 K/uL (1.20-3.40) 04/28/24 Monocytes # (Auto) 0.55 K/uL (0.11-0.59) 04/28/24 Eosinophils # (Auto) 0.19 K/uL (0.00-0.50) 04/28/24 Basophils # (Auto) 0.08 K/uL (0.00-0.20) 04/28/24 Immature Granulocyte # (Auto) 0.02 K/uL (0.01-0.20) 4 Na 141 mmol/L (136-145) 04/28/24 K 4.0 mmol/L (3.5-5.1) 04/28/24 Cl 107 mmol/L (98-107) 04/28/24 CO2 23 mmol/L (21-32) 04/28/24 Anion Gap 11 (3-11) 04/28/24 BUN 15 mg/dl (6-23) 04/28/24 Creatinine 1.08 mg/dl (0.6-1.4) 04/28/24 Estimated GFR ( Amer) 89.1 ml/min 04/28/24 Estimated GFR (Non-Af Amer) 76.9 ml/min 04/28/24 BUN/Creatinine Ratio 13.9 (10-20) 04/28/24 Glu 162 mg/dl (70-99(Fasting)) H 04/28/24 Ca 9.2 mg/dl (8.6-10.3) 04/28/24 Total Bilirubin 0.7 mg/dl (0.2-1.0) 04/28/24 AST 18 U/L (13-39) 04/28/24 ALT 18 U/L (7-52) 04/28/24 Alkaline Phosphatase 95 U/L (34-104) 04/28/24 TP 6.9 gm/dl (6.0-8.3) 04/28/24 Albumin 4.5 gm/dl (3.4-5.0) 04/28/24 Globulin 2.4 gm/dl (2.5-4.0) L 04/28/24 Albumin/Globulin Ratio 1.9 (0.9-2) 04/28/24 Mg 1.9 mg/dl (1.7-2.4) 04/28/24 14:14 Calcium Level 9.2 mg/dl (8.6-10.3) 04/28/24 14:14 Prothromb Time International Ratio 1.0 (0.9-1.1) 04/28/24 14:1 4 Diagnostic Findings (Past 24 Hours) Chest X-Ray 04/28/24 14:14 XR chest 1V portable CLINICAL HISTORY: neuro deficit, acute stroke suspected COMPARISON STUDY: No previous studies for comparison. FINDINGS: Lung volumes are normal. Lungs are clear. There is no pneumothorax or pleural effusion. Borderline cardiomegaly. Mediastinal contours are normal. There is no evidence for pulmonary edema. IMPRESSION: No acute cardiopulmonary findings. ACT 112: Negative or not required by law. Electronically signed by: Vince Bailey M.D. 04/28/2024 2:[address] 04/28/24 14:[address] DOSE: HISTORY: neuro deficit, acute stroke suspected TECHNIQUE: Multiaxial CT images of the head were performed without the use of intravenous contrast. Automated exposure control was utilized for this study. A dose lowering technique was utilized adhering to the principles of ALARA. Comparison: None. Findings: The paranasal sinuses and mastoid air cells are clear. The calvarium and skull base are intact. There is no mass, hematoma, midline shift. The ventricles and sulci are within normal limits. Small old lacunar infarct within the right cerebellar hemisphere posteriorly. Subtle hypodensity within the left posterior medial cerebellar hemisphere best seen on images 12 and 11. This could represent an age-indeterminate infarct. Impression: 1. Subtle small hypodensity within the left posterior medial cerebellar hemisphere which could represent an age-indeterminate infarct. 2. Old right cerebellar hemisphere lacunar infarct. 3. No acute intracranial hemorrhage. ACT 112: Negative or not required by law. Electronically signed by: Bebeto Javier M.D. 04/28/2024 2:38 PM Head CTA 04/28/24 14:14 CTA ANGIOGRAPHY OF THE HEAD CLINICAL HISTORY: neuro deficit, acute stroke suspected COMPARISON STUDY: No previous studies for comparison. TECHNIQUE: Helical axial images of the head were obtained following uneventful intravenous administration of 120 cc of Optiray. Sagittal and coronal re constructions were viewed as well as maximal intensity projections on an independent 3-D workstation. Automated exposure control was utilized for the study. A dose lowering technique was utilized adhering to the principles of ALARA. FINDINGS: The bilateral M1, M2, A1 and A2 segments are patent. There is no intracranial aneurysm. There is no vessel cut off within the anterior circulation. The left vertebral artery is dominant. There is apparent diminished flow within the distal portion of the left posterior inferior cerebellar artery. Otherwise, posterior circulation appears unremarkable. Basilar artery is patent. The bilateral posterior cerebral arteries are patent. Please note that the head CT will be reported separately. IMPRESSION: 1. Apparent diminished flow within the distal portion of the left posterior inferior cerebellar artery. This may be artifactual however vessel occlusion cannot be excluded. MRI of the brain could be obtained to assess for acute infarct. 2. No additional sites of vessel occlusion. ACT 112: Negative or not required by law. Electronically signed by: Vince Bailey M.D. 04/28/2024 2:43 PM Neck CTA 04/28/24 14:14 CT ANGIOGRAPHY OF THE NECK WITH CONTRAST CLINICAL HISTORY: neuro deficit, acute stroke suspected. Sudden onset dizziness. COMPARISON STUDY: No previous studies for comparison. Technique: CT angiography of the carotid and vertebral arteries was obtained using Optiray and 3D reconstruction on an independent workstation. NASCET criteria was utilized. Automated exposure control was utilized for the study. A dose lowering technique was utilized adhering to the principles of ALARA. CT DOSE: 1266.09 mGy.cm Findings: Incidental note is made of multiple segmental pulmonary emboli within visualized portions of the right upper lobe. Lung apices are otherwise unremarkable. There is no cervical lymphadenopathy. There are no cervical spine fractures. The bilateral common carotid and cervical internal carotid arteries are patent. There is no stenosis or dissection within these vessels. There is no aneurysm within the neck. The left vertebral artery is dominant. There are no stenoses or dissections within the cervical portions of the vertebral arteries. The CTA of the head will be reported separately. IMPRESSION: 1. Multiple right upper lobe segmental pulmonary emboli within visualized portions of the chest. 2. No stenosis or dissection within the bilateral common carotid, cervical internal carotid or cervical portions of the vertebral arteries. ACT 112: Negative or not required by law. Electronically signed by: Vince Bailey M.D. 04/28/2024 2:39 PM I & O Totals 24 Hours 04/27/24 04/28/24 04/29/24 06:59 06:59 06:59 Intake Total 500 / 500 Balance 500 / 500 Cumulative 04/28/24 13:54 thru 04/28/24 15:52 Intake Total 500 Balance 500 RT Ventilator Mngmt (Last Documented) Ventilator Ordered Settings Respiratory Rate 16 04/28/24 16:30 Ventilator - PT Measurements Respiratory Rate 16 Coding Level of Care Code 17088 CRITICAL CARE 1ST 30-74M Diagnoses Pulmonary embolism I26.99 Acute cor pulmonale presence: unspecified Chronicity: acute Pulmonary embolism type: unspecified Ac ischemic VBA cerebellar stroke I63.29 (1) Pulmonary embolism Acute cor pulmonale presence: unspecified Chronicity: acute Pulmonary embolism type: unspecified Qualified Code(s): I26.99 - Other pulmonary embolism without acute cor pulmonale
[2024-04-28] MEDS: ONDANSETRON INJ 2 MG/ML 2 ML VIAL IV PRN (17:24)
[2024-04-28] MEDS: ICU Protocol for HYPERglycemia SCH (18:04)
[2024-04-28] MEDS: GADOBUTROL 65ML VIAL IV ONE (18:10)
--- NOTE | 2024-04-28 18:31 | Magnetic Resonance Report ---
Brain MRI WITH AND WITHOUT CONTRAST HISTORY: posterior stroke TECHNIQUE: Multiplanar multisequence MRI of the brain was performed both before and after the intrave nous administration of contrast. COMPARISON STUDY: Head CT 04/28/2024. FINDINGS: Large area of restricted diffusion involving the posterior and inferior aspects of the left cerebellar hemisphere consistent with an acute left posterior inferior cerebellar artery infarct the remaining midline structures are intact. There is associated cytotoxic edema involving the left cere bellar hemisphere at the site of infarct. However, no significant mass effect at this time. There are a few additional old lacunar infarcts within the bilateral cerebellar hemispheres. There is an old p unctate lacunar infarct within the right caudate head. The ventricles are normal in size. There is no hematoma, mass, or midline shift. The orbits are unremarkable. The paranasal sinuses and mastoid air cells are clear. The major vascular flow-voids at the skull base are maintained. Postcontrast sequen na show no areas of abnormal enhancement. IMPRESSION: 1. There is a large area of restricted diffusion involving the posterior and inferior aspects of the left cerebellar hemisphere consistent with an acute left posterior inferior cerebellar artery infarct . 2. No evidence for hemorrhagic transformation at this time. 3. No significant mass effect within the posterior fossa. 4. A few additional old lacunar infarcts within the bilateral cerebellar hemispheres and right caudat e head. ACT 112: Negative or not required by law. Electronically signed by: Bebeto Javier M.D. 04/28/2024 6:29 PM
[2024-04-28] MEDS ORDERED: ONDANSETRON INJ 2 MG/ML 2 ML VIAL IV PRN (18:40)
[2024-04-28] MEDS: LORazepam 2 MG/1 ML VIAL IV STA (19:21)
[2024-04-28] MEDS ORDERED: STROKE PATIENT DISCHARGE STA (20:18)
--- NOTE | 2024-04-28 20:23 | Communication Note ---
Date of Service: April 28, 2024 53-year-old male admitted earlier this afternoon to the ICU following code stroke and administration of TNKase. Patient was found to have small cerebellar stroke on CT head and initially presented with nausea vomiting and headache which improved following TNKase. Of note, patient also found to have segmental PEs on CTA head and neck, and was supposed to undergo heparin infusion after 12 hours post TNKase. Was notified by the patient's primary nurse that he was now experiencing increased headache, nystagmus and double vision with uncontrolled nausea. MRI is now showing large left cerebellar territory infarct with cytotoxic edema, no hemorrhage or mass effect. I did speak with [place]. Peoples [place] [facility] [place] regarding the patient's case. At this time, they are recommending transfer to [facility] and he has been accepted by Dr. Tracy and will be transferred to neuro ICU via [facility] for evaluation by neurosurgery and possi ble need for posterior fossa decompression. The patient and his who was at the bedside has been informed and they consented to transfer. Will continue management in ICU pending transfer. I have personally spent 65 minutes of critical care time in the direct management of this patient. This is a life/limb threatening event. This includes time spent evaluating patient, direct bedside care, chart review, placing orders, interpretation of diagnostic studies, discussion with consultants, patient, and family members, as well as other required patient management activities. This time is exclusive of all separately billable procedures, and teaching time and separate from and in addition to any other critical care service time. Thank you for allowing us to participate in the care of this patient. Please refer to my attending physician's documentation for any further recommendations. Coding Level of Care Code 10405 CRITICAL CARE EA ADD 30M
[2024-04-28 20:40] VITALS: BP 148/78; PULSE 73; RESP 16; TEMP 97.9; O2SAT 97
--- NOTE | 2024-04-28 20:57 | Ultrasound Report ---
Exam(s): US VENOUS BILATERAL LOWER EXTREMITIES EXAM: US Duplex Bilateral Lower Extremities Veins CLINICAL HISTORY: Reason for exam: dvt eval. TECHNIQUE: Real-time duplex ultrasound scan of the bilateral lower extremity veins integrating B-mode two-dimensional vascular structure, Doppler spectral analysis, color flow Doppler imaging and compression. COMPARISON: No relevant prior studies available. FINDINGS: Right deep veins: Unremarkable. No DVT in the right common femoral, femoral, proximal deep femoral or popliteal veins. The veins demonstrate normal color flow, are normally compressible, with normal phasic flow and/or augmentation response. Right superficial veins: Unremarkable. No thrombus in the visualized right great saphenous vein. Left deep veins: There is nonocclusive thrombus identified in the left popliteal vein. Occlusive thrombus seen in the left posterior tibial veins. Left superficial veins: Unremarkable. No thrombus in the visualized left great saphenous vein. Soft tissues: No acute findings. No popliteal cyst. IMPRESSION: Deep venous thrombosis in the left lower extremity Electronically signed by: Chris Davis MD 04/28/24 20:55 PM
[2024-04-28] MEDS ORDERED: PROMETHAZINE 12.5 MG/50.5 ML BAG IV ONE (21:00)
[2024-04-29] MEDS ORDERED: Heparin IV Adult Wt-Based Low-Dose *NO* INITIAL Bolus Protocol IV ONE ×2 (02:00→04:00)
[2024-04-29] MEDS ORDERED: HEPARIN SODIUM/DEXTROSE 25,000 UNITS/500 ML BAG IV SCH ×2 (02:00→04:00)
--- NOTE | 2024-04-29 12:10 | Electrocardiogram Report ---
Test Reason : Blood Pressure : */* mmHG Vent. Rate : 78 BPM Atrial Rate : 78 BPM P-R Int : 162 ms QRS Dur : 80 ms QT Int : 396 ms P-R-T Axes : 33 -20 5 degrees QTcB Int : 451 ms Poor data quality, interpretation may be adversely affected Sinus rhythm Possible Left atrial enlargement Borderline ECG When compared with ECG of 17-Jun-2019 09:33, Questionable change in QRS axis Nonspecific T wave abnormality now evident in Anterior leads Confirmed by Farzad Crowell ([id number]) on 04/29/2024 12:10:13 PM Referred By: REFERRED SELF Confirmed By: Farzad Crowell
--- NOTE | 2024-04-29 16:22 | Discharge Summary ---
Discharge Summary Date of Service April 28, 2024 Principal Dx & Hospital Course #1 = Principal Diagnosis (1) Ac ischemic VBA cerebellar stroke: - likely with probable paradoxical emboli - Patient presented with nausea, vomiting, vertigo, ataxia, headache, and fatigue since 1310 on 04/28 - TNK initiated in right arm at 1507 on 04/28/24 Due to worsening headache his case was discussed again with [facility] and he was accepted for transfer (2) Pulmonary embolism: Admission HPI Per Admitting Provider Patient is a 53-year-old female with a past medical history of obstructive sleep apnea, he does not use his CPAP at home. Patient's , Mitra, at bedside provided additional history as needed. Patient here today with vomiting, vertigo/double vision, headache, and ataxia that began at 1310 today. He did not fall due to ataxia but felt as he was going to. Him and his recently drove home from the [facility] which is about a 10-[address]. He did have some calf pain this week. he denies recent shortness of breath or edema. He received TNK at 1507 today and his symptoms have been improving since. He has vomited multiple times prior to arrival and in the ED, has been managed with fluids, Zofran, and Phenergan. He stated that he feels very tired and was resting on exam. Patient denies cough, dyspnea, dyspnea on exertion, chest pain, abdominal pain, dysuria, edema, numbness, tingling. His symptoms of dizziness, headache, nausea, and vomiting are improving with TNK and antiemetics. He personally has no past medical history of DVT, PE, [place], CVA, bleeding, clotting disorders, DM, HTN, HLD or cancer. His mother had a PE about 4 years ago, but no known clotting disorders. He does not smoke or use illicit drugs. He drinks alcohol socially with his ; they have about 1 bottle of wine per weekend. He does not have any home medications because he has no past medical history, other than the MELIA in which she does not use oxygen/CPAP/BiPAP at home. He was to have a sleep study scheduled in the future. He had a recent wellness visit with his PCP in which all of his blood work was good. He wishes to be full code at this time. He does not have a written living will or POA. Discharge Plan Discharge Items Patient Disposition: Transfer Acute Care Hospital Reason For Visit: PE AND CVA, S/P TNK Discharge Diagnosis: Stroke in posterior and inferior aspects of the left cerebellar hemisphere Pulmonary embolism Activity: As commented below Activity Comment: bed rest Non-emergency contact: Primary Care Provider and Neurologist Call non-emergency contact if: you have any medication questions and your symptoms worsen Follow-up/Referrals: Tyrel Barrow, [Primary Care Provider] - Diet: Nothing by Mouth Addtl Attending Provider Instructions: 53 year old male admitted with posterior and inferior aspects of the left cerebellar hemisphere s/p TNK @ 15:06. Due to worsening symptoms and large stroke he will be transferred to [facility] for ongoing treatment. Incidental potato picker of segmental pulmonary emboli on CTA neck. US venous doppler and TTE pending at time of discharge. Medication list below is outpatient medications. Please see separate scanned sheet for inpatient medications. Pending Studies at Discharge: No Stand-Alone Forms: [facility] Skilled Items Patient informed of condition?: Yes DNR: No Discharge Level of Care: Other Communicable Disease: No Discharge Prognosis: Deteriorating Lines: Peripheral IV Urinary Catheter: Yes Medications and DC Order Prescriptions: Continued melatonin 5 mg capsule 5 mg PO HS PRN (Reason: Sleep) Discharge Orders: Discharge Order (Routine); Ordered 04/28/24 Ordered By: Reymundo Carballo Admission Data Admit Date/Time: 04/28/24 15:37 Attending Provider: Reymundo Carballo Admit Provider: Reymundo Carballo Primary Care Provider: Tyrel Barrow Other Providers: Keith Mejia; Brian Webber; Ruth Kelly; Bird Brewer Other Interventions: Discharge Summary Assessment (RN) Last Done: 04/28/24 20:43 Hospital Stay Data Consultations 04/28/24 15:11 ED Decision to Admit Stat 04/28/24 15:13 ED Decision to Admit Stat 04/28/24 15:37 Consult Neurology Routine 04/28/24 17:01 Consult Local [employer] Routine 04/28/24 20:01 Burn CD for patient Stat Diagnostic Imagining Performed 04/28/24 14:14 CT angio head w con Stat IMPRESSION: 1. Apparent diminished flow within the distal portion of the left posterior inferior cerebellar artery. This may be artifactual however vessel occlusion cannot be excluded. MRI of the brain could be obtained to assess for acute infarct. 2. No additional sites of vessel occlusion. CT angio neck with con Stat IMPRESSION: 1. Multiple right upper lobe segmental pulmonary emboli within visualized portions of the chest. 2. No stenosis or dissection within the bilateral common carotid, cervical internal carotid or cervical portions of the vertebral arteries. CT head/brain wo con Stat Impression: 1. Subtle small hypodensity within the left posterior medial cerebellar hemisphere which could represent an age-indeterminate infarct. 2. Old right cerebellar hemisphere lacunar infarct. 3. No acute intracranial hemorrhage. 04/28/24 15:53 MRI Brain [MR brain wo/w con] Stat IMPRESSION: 1. There is a large area of restricted diffusion involving the posterior and inferior aspects of the left cerebellar hemisphere consistent with an acute left posterior inferior cerebellar artery infarct. 2. No evidence for hemorrhagic transformation at this time. 3. No significant mass effect within the posterior fossa. 4. A few additional old lacunar infarcts within the bilateral cerebellar hemispheres and right caudate head. 04/28/24 16:38 US venous duplex leg [US venous doppler LE BI] Stat IMPRESSION: Deep venous thrombosis in the left lower extremity Pending Results Patient Have Any Pending Studies at Discharge: No Discharge Instructions Given to Patient (Per Discharging Provider) 53 year old male admitted with posterior and inferior aspects of the left cerebellar hemisphere s/p TNK @ 15:06. Due to worsening symptoms and large stroke he will be transferred to [facility] for ongoing treatment. Incidental potato picker of segmental pulmonary emboli on CTA neck. US venous doppler and TTE pending at time of discharge. Medication list below is outpatient medications. Please see separate scanned sheet for inpatient medications. Total Time Total Time Spent Total Time Spent (In Minutes): 20 Coding Level of Care Code None Diagnoses Ac ischemic VBA cerebellar stroke I63.29 Pulmonary embolism I26.99 Acute cor pulmonale presence: unspecified Chronicity: acute Pulmonary embolism type: unspecified
--- NOTE | 2024-05-04 23:09 | Billing Data ---
Date of Service April 28, 2024 Coding Level of Care Code 30454 INT INP/OBS CARE
== END 2024-04-28 21:01 | disposition short-term general hospital (02) | DRG 64 ==
LOC: ED 14:03 → 1E 15:37
DX: Z91.048 Other nonmedicinal substance allergy status; Z91.199 Patient's noncompliance with other medical treatment and regimen due to unspecified reason; R51.9 Headache, unspecified; G47.33 Obstructive sleep apnea (adult) (pediatric); R42 Dizziness and giddiness; Z91.030 Bee allergy status; R27.0 Ataxia, unspecified; Z82.49 Family history of ischemic heart disease and other diseases of the circulatory system; I63.542 Cerebral infarction due to unspecified occlusion or stenosis of left cerebellar artery; I26.99 Other pulmonary embolism without acute cor pulmonale